=== PATIENT | female | born 1960 | race Two or more races ===

== ENCOUNTER → 2016-11-23 | Outpatient (CLI) | payer BC ==
[~2016-11-23] MED LIST: BUPROPION XL300 MG ORAL; MOBIC7.5 MG ORAL; spironolactone PO
[2016-11-23 10:16] LABS: CREATININE 0.9 mg/dL (0.5-0.9); GLOMERULAR FILTRATION RATE > 60 mL/min (>60)
--- NOTE | 2016-11-23 14:08 | Diagnostic Imaging Report ---
Indication: Abdominal pain Technique: Continuous helical transaxial imaging of the abdomen and pelvis was obtained from the lung bases to the pubic symphysis during intravenous contrast administration. Coronal 2-D reformats were also obtained. Study obtained in a Siemens sensation [address] Total Dose length Product (DLP): [address] Dose Index Volume (CTDIvol): 15 mGy Comparison: None Findings: There is a hiatal hernia present. Lung bases are clear. The liver is unremarkable. Spleen is unremarkable. There is no nephrolithiasis or evidence of hydronephrosis. The pancreas and adrenal glands are unremarkable. Urinary bladder is unremarkable. The uterus is not seen and is either markedly atrophic or has been removed. There is moderate distention of the colon proximal to about the mid portion of the descending colon. At this point the colon is much smaller in caliber and takes a unusual course towards the left upper quadrant as it transitions into a long and redundant sigmoid. There is no definite volvulus or twisting of the colon is early no evidence of colon obstruction; however there may be an internal hernia given the configuration of the sigmoid colon in this region of the abdomen as well as the adjacent mesenteric vessels that also take an unusual course. Some impediment to the flow of stool through this segment of the colon could be present as a result. A repeat CT with a rectal contrast may be helpful to further evaluate. Impression: Unusually long and redundant sigmoid colon within what may be an internal hernia on the left side of abdomen. There is no colon obstruction per se. However some narrowing of the sigmoid colon is noted. Question whether there may be some impediment to the flow of stool through this apparently narrowed segment. Moderate colonic retention of stool proximal to sigmoid colon. A repeat CT with rectal contrast may be of benefit. Hiatal hernia Apparent hysterectomy The CT scanner at [facility] is accredited by the [employer] and the scans are performed using dose optimization techniques as appropriate to a performed exam including Automatic Exposure control.
== END | disposition home or self-care (01) ==
LOC: CAT 09:43
DX: R10.9 Unspecified abdominal pain (principal); K44.9 Diaphragmatic hernia without obstruction or gangrene; Z90.710 Acquired absence of both cervix and uterus
CPT/HCPCS: 36415; 74177; 82565; 84520; Q9967

== ENCOUNTER 2016-12-08 08:14 | Day surgery (SDC) | payer BC ==
[2016-12-08] VITALS (7 sets, daily range): BP systolic 80–119; BP diastolic 47–72
[~2016-12-08] VITALS: Ht 165.1 cm; Wt 59.9 kg
--- NOTE | 2016-12-08 06:34 | Anethesia Preoperative Eval ---
LORENZA MCKEON 12/08/16 0634: Anesthesia Pre-op PMH/ROS General Date of Evaluation: Dec 08, 2016 Time of Evaluation: 06:31 Anesthesiologist: mague ASA Score: ASA 2 Mallampati Score Class I : Soft palate, uvula, fauces, pillars visible Class II: Soft palate, uvula, fauces visible Class III: Soft palate, base of uvula visible Class IV: Only hard plate visible Mallampati Classification: Class II Surgeon: yang Diagnosis: constipation Surgical Procedure: colonoscopy Family History: no anesthesia problems Allergies: Coded Allergies: NO KNOWN ALLERGIES (Unverified Allergy, Unknown, 04/10/14) Medications: see eMAR Past Medical History Pulmonary: Reports: COPD Gastrointestinal/Genitourinary: Reports: other - hemmorhoids, hysterectomy Musculoskeletal/Integumentary: Reports: OA, other - osteoporosis Anesthesia Pre-op A/P Risk Assessment & Plan Assessment: asa2 Plan: mac Hetal Dickson M.D. 12/08/16 1151: Anesthesia Pre-op PMH/ROS General Date of Evaluation: Dec 08, 2016 Time of Evaluation: 10:42 Anesthesiologist: Darcy ASA Score: ASA 2 Mallampati Classification: Class I Surgeon: Yang Diagnosis: Colitis Surgical Procedure: colonoscopy and necessary interventions Anesthesia History: none Family History: no anesthesia problems Allergies: Coded Allergies: NO KNOWN ALLERGIES (Unverified Allergy, Unknown, 04/10/14) Medications: see eMAR Past Medical History Pulmonary: Reports: COPD Neurologic/Psychiatric: Reports: depression/anxiety Anesthesia Pre-op Phys. Exam Physician Exam Constitutional: NAD Cardiovascular: RRR Respiratory: CTA Airway Exam Mallampati Score: Class I MO: full ROM: full Anesthesia Pre-op A/P Risk Assessment & Plan Assessment: ASA 2 Plan: MAC with LOC Status Change Before Surgery: No Pre-Antibiotics Drug: n/a LORENZA MCKEON Dec 08, 2016 06:34 Hetal Dickson M.D. Dec 08, 2016 11:51
[2016-12-08] MEDS ORDERED: ATORVASTATIN CA10 MG ORAL (08:54)
[2016-12-08] MEDS ORDERED: FETZIMA40 MG PO (08:57)
--- NOTE | 2016-12-08 10:21 | Pre-Procedure Note/Attestation ---
Pre-Procedure Note/Attestation Complete Prior to Procedure Planned Procedure: not applicable Procedure Narrative: screening colon Indications for Procedure Pre-Operative Diagnosis: screening Attestation I attest that I discussed the nature of the procedure; its benefits; risks and complications; and alternatives (and the risks and benefits of such alternatives ), prior to the procedure, with the patient (or the patient's legal consumer sales representative). I attest that, if there was a reasonable possibility of needing a blood transfusion, the patient (or the patient's legal consumer sales representative) was given the [facility] standardized written summary, pursuant to the [place] Judith Blood Safety Act ([place] Health and Safety Code # 1645, as amended). I attest that I re-evaluated the patient just prior to the surgery and that there has been no change in the patient's H&P, except as documented below: NAWAF HAYNES Dec 08, 2016 10:21
--- NOTE | 2016-12-08 10:23 | Short Stay Surgery H&P ---
History of Present Illness History of Present Illness Chief Complaint constipation, abd pain, HPI Nathalie Garvin is a 56 year old female who was admitted on for Constipation Patient History Allergies: Coded Allergies: NO KNOWN ALLERGIES (Unverified Allergy, Unknown, 04/10/14) PAST MEDICAL HISTORY: (1) Constipation (2) Encounter for screening colonoscopy Past Surgeries: Social History: Medication History Scheduled Atorvastatin Calcium* (Lipitor*), 10 MG ORAL BEDTIME, (Reported) Bupropion Hcl* (Wellbutrin*), 150 MG ORAL DAILY, (Reported) Levomilnacipran Hydrochloride (Fetzima), 40 MG PO DA, (Reported) Meloxicam* (Mobic*), 7.5 MG ORAL NEEDED, (Reported) [spironolactone], 10 MG PO DAILY, (Reported) Review of Systems Cardiovascular: Reports: no symptoms Respiratory: Reports: no symptoms Skeletal: Reports: no symptoms Gastrointestinal: Reports: gastro esophageal reflux disease Genitourinary: Reports: no symptoms Neurologic: Reports: no symptoms Endocrine: Reports: no symptoms Hematologic: Reports: no symptoms Physical Exam Vital Signs Last Vital Signs Date Time Temp Pulse Resp B/P Pulse Ox O2 Delivery O2 Flow Rate FiO2 12/08/16 08:58 97.7 71 20 107/58 100 Room Air Skin: normal HENT: normal Heart: normal Lungs: normal Abdomen: normal Extremities: normal Plan Plan of Care colonoscopy Final Diagnosis: Attestation Are the patient's medical conditions optimized for surgery? Attestation Response: yes NAWAF HAYNES Dec 08, 2016 10:23
[2016-12-08] MEDS ORDERED: Midazolam 2mg/2ml Inj IVP PRN (11:00)
[2016-12-08] MEDS ORDERED: fentaNYL 100 mcg/2 mL IV PRN (11:00)
--- NOTE | 2016-12-08 11:02 | Endoscopy Procedure Note ---
Endoscopy Procedure Note Indication for Procedure: screening colon, abd pain Procedures Performed: colonoscopy Operative Findings/Diagnosis: rectal polyp, hemorrhoids Specimen: yes Pt Tolerated Procedure Well: Yes Estimated Blood Loss: none Anesthesiologist: mague Anesthesia: MAC Implant(s) used?: No 50 yrs or older w/o bx or poly: No 10yrs. F/U not recommended: Yes If not recommended, why?: Above average risk 10 yrs. F/U needed: Yes 18 years or older w/prev. colo: Yes <3yrs. since last colonoscopy: No NAWAF HAYNES Dec 08, 2016 11:02
--- NOTE | 2016-12-08 11:13 | Immediate Post-Op Evaluation ---
Immediate Post-Op Evalulation Immediate Post-Op Evalulation Procedure: colonoscopy Date of Evaluation: Dec 08, 2016 Time of Evaluation: 11:13 IV Fluids: 0.9ns 1000ml Blood Products: none Estimated Blood Loss: negligible Blood Pressure Systolic: 90 Blood Pressure Diastolic: 50 Pulse Rate: 79 Respiratory Rate: 18 O2 Sat by Pulse Oximetry: 96 Temperature (Fahrenheit): 97.1 Pain Score (1-10): 0 Nausea: No Vomiting: No Complications none Patient Status: awake, reacts, patent Hydration Status: adequate Drug: LORENZA Hong Dec 08, 2016 11:13
--- NOTE | 2016-12-08 11:47 | 48 Hour Post Anesthesia Eval ---
Post Anesthesia Evaluation Procedure: colonoscopy, biopsy Date of Evaluation: Dec 08, 2016 Time of Evaluation: 11:45 Blood Pressure Systolic: 119 Pulse Rate: 78 Respiratory Rate: 18 O2 Sat by Pulse Oximetry: 99 Airway: patent Nausea: No Vomiting: No Hydration Status: adequate Mental Status/LOC: patient returned to baseline Follow-up care needed: ready to discharge Hetal Dickson M.D. Dec 08, 2016 11:47
--- NOTE | 2016-12-08 11:48 | Procedure Note ---
DATE OF PROCEDURE: 12/08/2016 SURGEON: Donnie Lin M.D. PROCEDURE: Colonoscopy with biopsy. ANESTHESIOLOGIST: Awilda Go M.D. INSTRUMENT: Olympus adult flexible upper colonoscope. INDICATION: Screening colonoscopy evaluation. CT evidence of colitis and rectal pain. REASON FOR PROCEDURE: The procedure, risks, benefits, and possible consequences, including hemorrhage, aspiration, perforation and infection, and alternative treatments, were explained to the patient/legal guardian by Dr. Donnie Lin and the patient/legal guardian understood and accepted these risks. DESCRIPTION OF PROCEDURE: After informed consent was obtained and the patient was adequately sedated, first rectal exam was performed, which positive for external and internal hemorrhoids. Then, the scope was advanced from the rectum into the cecum, documented by appendiceal orifice, ileocecal valve, right upper quadrant on palpation. Quality of prep was very good. The patient had some scattered diverticulosis in the right colon. There was no obvious mass was seen. No obvious active bleeding at this time. No obvious significant colitis at this time. In the rectum, on retroflexion start diminutive polyp above the dentate line which was biopsied. The patient had prior history of rectal surgery and there is bad looking for in the rectum. The patient also evidence of external hemorrhoids. Internal hemorrhoids. SUMMARY OF FINDINGS: 1. Scattered diverticulosis. 2. Internal and external hemorrhoids. 3. One rectal polyp removed, see above for details. RECOMMENDATIONS: Follow up biopsies and treat accordingly. Donnie Lin M.D. DR: ROSA JOB#: [id number] CC:
[2016-12-08] MEDS ORDERED: NS 550ML IV ONE (19:00)
[2016-12-08] MEDS ORDERED: Propofol 10mg/ml 20ml IV ONE (19:00)
[2016-12-08] MEDS ORDERED: Lidocaine 1% MPF 10mg/ml 5ml ONE (19:00)
--- NOTE | 2016-12-14 21:24 | Cardiology Report ---
APPROVED REPORT EKG Measurement Heart [id number] Normal sinus rhythm Normal ECG
== END 2016-12-08 12:25 | disposition home or self-care (01) ==
LOC: GAS 08:14
DX: Z12.11 Encounter for screening for malignant neoplasm of colon (principal); K62.1 Rectal polyp; K57.30 Diverticulosis of large intestine without perforation or abscess without bleeding; K64.4 Residual hemorrhoidal skin tags; K64.8 Other hemorrhoids; K59.00 Constipation, unspecified; K21.9 Gastro-esophageal reflux disease without esophagitis; J44.9 Chronic obstructive pulmonary disease, unspecified; M19.90 Unspecified osteoarthritis, unspecified site; M81.0 Age-related osteoporosis without current pathological fracture; F32.9 Major depressive disorder, single episode, unspecified; F41.9 Anxiety disorder, unspecified; Z90.710 Acquired absence of both cervix and uterus; Z79.899 Other long term (current) drug therapy
CPT/HCPCS: 45380; 93005; J2704; J7040; 94003; 94150